=== PATIENT | female | born 1970 | race Caucasian/White ===

== ENCOUNTER 2019-07-15 14:44 | Emergency (ER) | payer BC ==
[2019-07-15] MEDS ORDERED: Ondansetron 4 MG Tab.DIS PO ONE (14:58)
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
[2019-07-15] MEDS ORDERED: Sodium Chloride 0.9% 10 ML Syringe FLUSH PRN (15:32)
[2019-07-15] MEDS ORDERED: Sodium Chloride 0.9% 1,000 ML IV ONE (15:32)
[2019-07-15] MEDS ORDERED: Metoclopramide 10 MG/2 ML SDV IVPUSH ONE (15:33)
== END 2019-07-15 17:43 | disposition home or self-care (01) ==
LOC: JD.ED 14:44
DX: A05.9 Bacterial foodborne intoxication, unspecified (principal); F17.210 Nicotine dependence, cigarettes, uncomplicated
CPT/HCPCS: 36415; 80053; 85025; 96361; 96374; 99284; A9270; J2765; J7030; 99283

== ENCOUNTER 2020-07-17 17:51 | Emergency (ER) | payer BC, OTHER ==
[2020-07-17] MEDS ORDERED: LORazepam 2 MG/ML SDV IM ONE (18:29)
[2020-07-17] MEDS ORDERED: Ketorolac 30 MG/ML SDV IM ONE (18:29)
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
== END 2020-07-17 19:15 | disposition home or self-care (01) ==
LOC: JD.ED 17:51
DX: G44.209 Tension-type headache, unspecified, not intractable (principal); Z72.0 Tobacco use
CPT/HCPCS: 96372; 99283; J1885; J2060

== ENCOUNTER 2020-07-19 09:35 | Emergency (ER) | payer OTHER ==
[2020-07-19] MEDS ORDERED: LORazepam 2 MG/ML SDV IM ONE (10:21)
[2020-07-19] MEDS ORDERED: Ketorolac 30 MG/ML SDV IM ONE (10:21)
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
--- NOTE | 2020-07-19 11:29 | CT ---
CT cervical spine Technique: Multiple axial sections were obtained from above C1 inferiorly through T2. Reconstructed coronal and sagittal images were obtained. Comparison: No previous cervical spine imaging is available. Findings: Severe disc space narrowing is noted at C5-6 which contains vacuum phenomena. Mild posterior osteophytes are noted as well as anterior osteophytes. Mild disc space narrowing is noted at C6-7 with minimal anterior and posterior osteophytes. Slight kyphosis is seen within the cervical spine either due to spasm or being positional. No acute fracture or acute subluxation is appreciated. Degenerative change is noted within the uncovertebral joints at C5-6 and lesser at C6-7. Impression: 1. Degenerative change. 2. Slight kyphosis of the cervical spine as noted above. 3. No acute fracture or acute subluxation is appreciated. Diagnostic code #2
--- NOTE | 2020-07-19 11:29 | CT ---
Head CT Technique: Multiple axial sections through the brain were obtained. Intravenous contrast was not utilized. Reconstructed coronal and sagittal images were also obtained. Comparison: No prior intracranial imaging is available. Findings: Ventricles along with basal cisterns and sulci over the convexities are within normal limits for the patient's age. No abnormal parenchymal densities are seen. No evidence of intracranial hemorrhage. No midline shift or mass-effect is seen. Bone window settings were reviewed which show no acute calvarial abnormality. Visualized paranasal sinuses and mastoid sinuses show nothing acute. Impression: 1. Nothing acute is seen on noncontrast head CT exam. Diagnostic code #1
== END 2020-07-19 12:00 | disposition home or self-care (01) ==
LOC: JD.ED 09:35
DX: M62.838 Other muscle spasm (principal); M40.202 Unspecified kyphosis, cervical region; Z72.0 Tobacco use
CPT/HCPCS: 70450; 72125; 96372; 99284; J1885; J2060; 99283

== ENCOUNTER 2021-03-01 14:29 | Emergency (ER) | payer OTHER | END 2021-03-01 15:49 | disposition left against medical advice (07) | LOC: JD.ED 14:29 | DX: Z53.21 Procedure and treatment not carried out due to patient leaving prior to being seen by health care provider (principal) ==

== ENCOUNTER 2022-12-09 15:06 | Emergency (ER) | payer MEDICAID, OTHER ==
[2022-12-09] MEDS ORDERED: Ketorolac 60 MG/2 ML SDV IM ONE (16:00)
[2022-12-09] MEDS ORDERED: Cyclobenzaprine 10 MG Tab PO ONE (16:00)
[2022-12-09] MEDS ORDERED: HYDROmorphone 1 MG/ML Syringe IM ONE (16:00)
== END 2022-12-09 17:55 | disposition home or self-care (01) ==
LOC: JD.ED 15:06
DX: M54.50 Low back pain, unspecified (principal); Z72.0 Tobacco use; Z86.16 Personal history of COVID-19; X50.0XXA Overexertion from strenuous movement or load, initial encounter
CPT/HCPCS: 72100; 96372; 99283; A9270; J1170; J1885

== ENCOUNTER 2022-12-30 16:57 | Emergency (ER) | payer MEDICAID ==
[2022-12-30] MEDS ORDERED: HYDROmorphone 0.5 MG/0.5 ML Syringe IM ONE (18:28)
== END 2022-12-30 19:43 | disposition home or self-care (01) ==
LOC: JD.ED 16:57
DX: M54.50 Low back pain, unspecified (principal); Z86.16 Personal history of COVID-19
CPT/HCPCS: 96372; 99283; J1170

== ENCOUNTER 2023-08-06 14:08 | Emergency (ER) | payer MEDICAID, OTHER ==
[2023-08-06 14:59] LABS: BASOPHILS PERCENT AUTO 0.5 % (0.0-1.0); EOSINOPHILS ABSOLUTE AUTO 0.2 K/mm3 (0.0-0.4); EOSINOPHILS PERCENT AUTO 3.5 % (0.0-6.0); HEMATOCRIT 40.1 % (37.0-47.0); HEMOGLOBIN 13.6 gm/dl (12.0-16.0); IMMATURE GRAN ABSOLUTE AUTO 0.02 K/mm3 (0.00-0.05); IMMATURE GRAN PERCENT AUTO 0.3 % (0.0-0.4); LYMPHOCYTES ABSOLUTE AUTO 1.1 K/mm3 (1.0-4.8); LYMPHOCYTES PERCENT AUTO 16.7 % (24.0-44.0); MEAN CORPUSCULAR HEMOGLOBIN 31.8 pg (28.0-32.0); MEAN CORPUSCULAR HGB CONC 33.9 g/dl (32.0-36.0); MEAN CORPUSCULAR VOLUME 93.7 fl (83.0-99.0); MEAN PLATELET VOLUME 9.5 fl (9.4-12.3); MONOCYTES ABSOLUTE AUTO 0.6 K/mm3 (0.0-0.8); NEUTROPHILS ABSOLUTE AUTO 4.4 K/mm3 (1.8-7.7); PLATELET COUNT,PLT 227 K/mm3 (150-400); RED BLOOD CELL COUNT 4.28 M/mm3 (4.10-5.30)
[2023-08-06] MEDS: Sodium Chloride 0.9% 10 ML Syringe FLUSH PRN (15:01)
[2023-08-06] MEDS: Sodium Chloride 0.9% 500 ML IV STA ×2 (15:01→17:34)
[2023-08-06] MEDS: Iopamidol 612 MG/ML 100 ML Bottle IVPUSH ONE (15:14)
[2023-08-06 15:22] LABS: A/G RATIO 1.3 (1-2); ALBUMIN 4.5 g/dl (3.4-5.0); ANION GAP 15.3 (5-15); BILIRUBIN TOTAL 0.5 mg/dL (0.2-1.0); C-REACTIVE PROTEIN 1.89 mg/dL (<0.30); CALCIUM 9.3 mg/dL (8.5-10.1); CREATININE 0.8 mg/dL (0.55-1.02); EST CRCL DRUG DOSING (CG) 69.42 mL/min; POTASSIUM,K 3.3 mEq/L (3.5-5.1)
[2023-08-06] MEDS: Sodium Chloride 0.9% 1,000 ML IV STA (15:47)
[2023-08-06] MEDS: HYDROmorphone 0.5 MG/0.5 ML Syringe IVPUSH ONE (16:41)
[2023-08-06] MEDS: Ondansetron 4 MG/2 ML SDV IVPUSH ONE (16:42)
== END 2023-08-06 18:24 | disposition home or self-care (01) ==
LOC: JD.ED 14:08
DX: F17.210 Nicotine dependence, cigarettes, uncomplicated (principal); K62.89 Other specified diseases of anus and rectum; Z86.16 Personal history of COVID-19
CPT/HCPCS: 36415; 74177; 74177-26; 80053; 84484; 85025; 86140; 86850; 86900; 86901; 93005; 93010; 96361; 96374; 96375; 99284; 99284-25; J1170; J2405; J3490; J7030; Q9967

== ENCOUNTER 2023-08-13 10:27 | Emergency (ER) | payer OTHER ==
[2023-08-13] MEDS ORDERED: Sodium Chloride 0.9% 10 ML Syringe FLUSH PRN (11:02)
[2023-08-13 11:41] LABS: BASOPHILS ABSOLUTE AUTO 0.1 K/mm3 (0.0-0.2); BASOPHILS PERCENT AUTO 0.6 % (0.0-1.0); EOSINOPHILS ABSOLUTE AUTO 0.2 K/mm3 (0.0-0.4); EOSINOPHILS PERCENT AUTO 2.1 % (0.0-6.0); HEMATOCRIT 41.5 % (37.0-47.0); HEMOGLOBIN 13.9 gm/dl (12.0-16.0); IMMATURE GRAN ABSOLUTE AUTO 0.04 K/mm3 (0.00-0.05); IMMATURE GRAN PERCENT AUTO 0.4 % (0.0-0.4); LYMPHOCYTES ABSOLUTE AUTO 1.9 K/mm3 (1.0-4.8); LYMPHOCYTES PERCENT AUTO 19.3 % (24.0-44.0); MEAN CORPUSCULAR HEMOGLOBIN 31.4 pg (28.0-32.0); MEAN CORPUSCULAR HGB CONC 33.5 g/dl (32.0-36.0); MEAN CORPUSCULAR VOLUME 93.7 fl (83.0-99.0); MEAN PLATELET VOLUME 9.5 fl (9.4-12.3); MONOCYTES ABSOLUTE AUTO 0.8 K/mm3 (0.0-0.8); MONOCYTES PERCENT AUTO 8.4 % (0.0-8.0); NEUTROPHILS ABSOLUTE AUTO 6.7 K/mm3 (1.8-7.7); NEUTROPHILS PERCENT AUTO 69.2 % (41.0-71.0); PLATELET COUNT,PLT 271 K/mm3 (150-400); RED BLOOD CELL COUNT 4.43 M/mm3 (4.10-5.30); WHITE BLOOD CELL COUNT,WBC 9.61 K/mm3 (3.9-11.3)
[2023-08-13 12:10] LABS: A/G RATIO 1.2 (1-2); ALBUMIN 4.3 g/dl (3.4-5.0); ANION GAP 14.8 (5-15); BILIRUBIN TOTAL 0.6 mg/dL (0.2-1.0); BUN/CREATININE RATIO 22.5 (14-18); C-REACTIVE PROTEIN 0.51 mg/dL (<0.30); CALCIUM 9.4 mg/dL (8.5-10.1); CREATININE 0.8 mg/dL (0.55-1.02); EST CRCL DRUG DOSING (CG) 69.42 mL/min; POTASSIUM,K 3.8 mEq/L (3.5-5.1); PROTEIN TOTAL,TP 7.9 g/dl (6.4-8.2)
[2023-08-13 12:10] LABS: APPEARANCE,URINE CLEAR (Clear); BILIRUBIN,URINE NEGATIVE (Negative); COLOR,URINE YELLOW (Yellow); GLUCOSE,URINE NEGATIVE (Negative); KETONES,URINE NEGATIVE (Negative); LEUKOCYTE ESTERASE,URINE NEGATIVE (Negative); NITRITE,URINE NEGATIVE (Negative); OCCULT BLOOD,URINE NEGATIVE (Negative); PROTEIN,URINE NEGATIVE (Negative); UROBILINOGEN,URINE 0.2 (0.2-1.0)
[2023-08-13] MEDS ORDERED: Sodium Chloride 0.9% 1,000 ML IV SCH (12:15)
[2023-08-13 14:31] LABS: MAGNESIUM 1.8 mg/dL (1.8-2.4)
== END 2023-08-13 14:35 | disposition home or self-care (01) ==
LOC: JD.ED 10:27
DX: R19.5 Other fecal abnormalities (principal); Z86.16 Personal history of COVID-19; Z79.899 Other long term (current) drug therapy
CPT/HCPCS: 36415; 80053; 81003; 83605; 83690; 83735; 85025; 85652; 86140; 99282; 99284

== ENCOUNTER 2024-02-13 22:47 | Emergency (ER) | payer SELFPAY ==
[2024-02-13] MEDS ORDERED: Sodium Chloride 0.9% 10 ML Syringe FLUSH PRN (23:30)
[2024-02-14 00:01] LABS: BASOPHILS PERCENT AUTO 0.3 % (0.0-1.0); EOSINOPHILS ABSOLUTE AUTO 0.1 K/mm3 (0.0-0.4); HEMATOCRIT 38.8 % (37.0-47.0); HEMOGLOBIN 12.8 gm/dl (12.0-16.0); IMMATURE GRAN ABSOLUTE AUTO 0.04 K/mm3 (0.00-0.05); IMMATURE GRAN PERCENT AUTO 0.6 % (0.0-0.4); LYMPHOCYTES ABSOLUTE AUTO 1.5 K/mm3 (1.0-4.8); LYMPHOCYTES PERCENT AUTO 21.3 % (24.0-44.0); MEAN CORPUSCULAR HEMOGLOBIN 30.7 pg (28.0-32.0); MEAN PLATELET VOLUME 9.9 fl (9.4-12.3); MONOCYTES ABSOLUTE AUTO 0.8 K/mm3 (0.0-0.8); MONOCYTES PERCENT AUTO 11.4 % (0.0-8.0); NEUTROPHILS ABSOLUTE AUTO 4.5 K/mm3 (1.8-7.7); NEUTROPHILS PERCENT AUTO 64.4 % (41.0-71.0); PLATELET COUNT,PLT 304 K/mm3 (150-400); RED BLOOD CELL COUNT 4.17 M/mm3 (4.10-5.30); WHITE BLOOD CELL COUNT,WBC 7.04 K/mm3 (3.9-11.3)
[2024-02-14] MEDS: Sodium Chloride 0.9% 1,000 ML IV SCH (00:19)
[2024-02-14] MEDS: Ondansetron 4 MG/2 ML SDV IVPUSH ONE (00:22)
[2024-02-14] MEDS: HYDROmorphone 0.5 MG/0.5 ML Syringe IVPUSH ONE (00:23)
[2024-02-14 00:25] LABS: ALBUMIN 3.5 g/dl (3.4-5.0); ANION GAP 11.8 (5-15); BILIRUBIN TOTAL 0.3 mg/dL (0.2-1.0); CALCIUM 9.4 mg/dL (8.5-10.1); CREATININE 0.8 mg/dL (0.55-1.02); EST CRCL DRUG DOSING (CG) 68.61 mL/min; POTASSIUM,K 3.8 mEq/L (3.5-5.1); PROTEIN TOTAL,TP 7.1 g/dl (6.4-8.2)
[2024-02-14 00:32] LABS: SLIDE REVIEW NORMAL SMEAR
== END 2024-02-14 02:05 | disposition home or self-care (01) ==
LOC: JD.ED 22:47
DX: K62.5 Hemorrhage of anus and rectum (principal); R10.84 Generalized abdominal pain; I10 Essential (primary) hypertension; Z86.16 Personal history of COVID-19; Z79.899 Other long term (current) drug therapy
CPT/HCPCS: 36415; 74019; 80053; 83690; 85025; 96361; 96374; 96375; 99284; J1170; J2405; J7030